=== PATIENT | male | born 1960 | race African-American/Black ===

== ENCOUNTER 2017-01-04 08:30 | Inpatient (IN) | payer OTHER ==
[~2017-01-04] VITALS: Ht 177.8 cm; Wt 88.9 kg
[2017-03-02] MEDS ORDERED: ATEN100T PO (12:05)
[2017-03-02] MEDS ORDERED: ALLO300T2 PO (12:05)
[2017-03-02] MEDS ORDERED: NIAC500T18 PO (12:05)
[2017-03-02] MEDS ORDERED: MOBI15TA PO (12:05)
[2017-03-02] MEDS ORDERED: GABA300C5 PO (12:05)
[2017-03-02] MEDS ORDERED: OMEP40CA2 PO (12:05)
[2017-03-02] MEDS ORDERED: LISI-515 PO (12:05)
[2017-03-02] MEDS ORDERED: ASPI1TAB69 PO (12:05)
[2017-03-02] MEDS ORDERED: HYDR25TA5 PO (12:05)
[2017-03-02] MEDS ORDERED: ALPR.25 PO (12:05)
[2017-03-03] MEDS ORDERED: ceFAZolin 2 GM PREMIX 50 ML IV SCH (10:45)
[2017-03-03] MEDS ORDERED: CHLORHEXIDINE GLUCONATE 4% SOLN 120 ML BTL TOPICAL SCH (10:45)
[2017-03-03] MEDS ORDERED: POVIDONE IODINE 7.5% SCRUB 118 ML BOTTLE TOPICAL SCH (10:45)
[2017-03-03] MEDS ORDERED: METOPROLOL TARTRATE 25 MG TAB PO PRN (11:00)
[2017-03-03] MEDS ORDERED: SODIUM CHLORID 0.9% 500 ML IV PRN (11:00)
[2017-03-03] MEDS ORDERED: DEXAMETHASONE SOD PHOS 20 MG/5 ML VIAL IV SCH (11:00)
[2017-03-03] MEDS ORDERED: ROPIVACAINE PERI-ARTICULAR INJECTION. P-ARTICULR SCH ×5 (11:00)
[2017-03-03] MEDS ORDERED: POVIDONE IODINE 5% (ANTISEPSIS KIT) 4 APPLICATIONS EACH NARE PRN (11:00)
[2017-03-03] MEDS ORDERED: TRANEXAMIC ACID INJ 885 MG in SODIUM CHLORIDE 0.9% INJ 100 ML IV SCH (11:00)
[2017-03-03] MEDS ORDERED: LACTATED RINGER'S 1000 ML IV PRN (11:00)
[2017-03-03] MEDS ORDERED: TRANEXAMIC PERI-ARTICULAR 3,000 MG/NS 100 ML P-ARTICULR SCH ×2 (11:00)
[2017-03-03] MEDS ORDERED: CHLORHEXIDINE GLUCONATE 2 % 1 PACK (2 CLOTHS) TOPICAL PRN (11:00)
[2017-03-03] MEDS ORDERED: INSULIN HUMAN REGULAR 1,000 UNITS/10 ML VIAL SQ PRN (11:00)
[2017-03-03] MEDS ORDERED: TRANEXAMIC ACID INJ 1,330 MG in SODIUM CHLORIDE 0.9% INJ 100 ML IV SCH (11:16)
[2017-03-03] MEDS ORDERED: VANCOMYCIN 1000 MG/NS 250 ML (for <70 kg) IV SCH ×2 (11:30)
[2017-03-03 11:57] VITALS: BP 140/90; PULSE 67; RESP 20; TEMP 97.9; O2SAT 99
[2017-03-03] MEDS ORDERED: PROPOFOL 200 MG/20 ML AMP IV ONE (12:00)
[2017-03-03] MEDS ORDERED: PHENYLEPH/NS 1000 MCG/10 ML SYR IV ONE (12:00)
[2017-03-03] MEDS ORDERED: ONDANSETRON HCL 4 MG/2 ML VIAL IV PUSH ONE (12:00)
[2017-03-03] MEDS ORDERED: LACTATED RINGER'S 1000 ML INJ 1,000 ML IV ONE (12:00)
[2017-03-03] MEDS ORDERED: GENTAMICIN SULFATE 80 MG/2 ML VIAL ONE (12:19)
[2017-03-03] MEDS ORDERED: HYDR-3288 PO (13:10)
[2017-03-03] MEDS ORDERED: ENOX40P SQ (13:10)
[2017-03-03] MEDS ORDERED: ASPI81CH37 CHEW (13:11)
[2017-03-03] MEDS ORDERED: BISACODYL 10 MG SUPP RECTAL PRN (13:15)
[2017-03-03] MEDS ORDERED: Post-op Orders (for Pharmacy) MISC XX ONE (13:15)
[2017-03-03] MEDS ORDERED: MORPHINE SULFATE 4 MG/ML INJ IV PUSH PRN (13:15)
[2017-03-03] MEDS ORDERED: ACETAMINOPHEN/HYDROcodone 325 MG/7.5 MG TAB PO PRN (13:15)
[2017-03-03] MEDS ORDERED: ALUMINUM/MAGNESIUM/SIMETH 30 ML CUP PO PRN (13:15)
[2017-03-03] MEDS ORDERED: ALPRAZolam 0.25 MG TAB PO PRN (13:15)
[2017-03-03] MEDS ORDERED: NALOXONE HCL 0.4 MG/ML AMP IV PRN (13:15)
[2017-03-03] MEDS ORDERED: ZOLPIDEM TARTRATE 5 MG TAB PO PRN (13:15)
[2017-03-03] MEDS ORDERED: diphenhydrAMINE HCL 50 MG/ML VIAL IV PRN (13:15)
[2017-03-03] MEDS ORDERED: ONDANSETRON HCL 4 MG/2 ML VIAL IVP PRN (13:15)
[2017-03-03] MEDS ORDERED: SODIUM CHLORIDE 0.9% FLUSH 10 ML FLUSH IV FLUSH PRN (13:15)
[2017-03-03] MEDS ORDERED: MIDAZOLAM HCL 2 MG/2 ML VIAL ONE ×2 (14:17→14:22)
[2017-03-03] MEDS ORDERED: FAMOTIDINE 20 MG/2 ML VIAL ONE (14:18)
[2017-03-03] MEDS ORDERED: fentaNYL CITRATE 250 MCG/5 ML AMP ONE (14:22)
[2017-03-03] MEDS ORDERED: MORPHINE SULFATE 4 MG/ML INJ ONE (16:52)
--- NOTE | 2017-03-03 17:20 | RADRPT ---
EXAM DATE/TIME: 03/03/2017 18:02 [place] COMPARISON: No previous studies available for comparison. INDICATIONS : Post op right knee replacement. MEDICAL HISTORY : None. SURGICAL HISTORY : None. ENCOUNTER: Initial ACUITY: 1 day PAIN SCORE: Non-responsive. LOCATION: Right knee. FINDINGS: Two-view examination of the right knee demonstrates a total knee arthroplasty in place. Prominent am ount of gas present within the suprapatellar bursa and scattered gas in the soft tissues. Alignment of the osseous structures is anatomic. CONCLUSION: Expected postsurgical findings status post total knee arthroplasty. Kuldeep Jaime MD on March 03, 2017 at 17:18 Board Certified Radiologist. This report was verified electronically.
[2017-03-03] MEDS: SODIUM CHLOR 0.9% 1000 ML INJ 1,000 ML IV SCH (17:30)
[2017-03-03] MEDS ORDERED: DEXTROSE 50% IN WATER 50 ML VIAL(D50) IV PUSH PRN (17:45)
[2017-03-03] MEDS ORDERED: GLUCAGON 1 MG/ML VIAL OTHER PRN (17:45)
--- NOTE | 2017-03-03 17:45 | PD.CONS ---
HPI Service [facility] Hospitalists Consult Requested By Orthopedic Surgeon, Dr. Good Reason for Consult Medical Management Primary Care Physician [facility] Diagnoses: History of Present Illness Patient is a 56 year old male with primary medical history of HTN, HLD, DM diet-controlled, history of pancreatitis secondary to EtOH, osteoarthritis who came into the hospital for right knee arthritis and underwent right total knee arthroplasty done by Dr. Good. Patient seen in the recovery room just waking up from surgery. Patient is confused, unaware of what had happened to him. Reoriented by nursing and discussed that he is status post knee surgery.Denies pain and discomfort. Denies SOB/ dyspnea. Denies chest pain, palpitations, headaches, dizziness. Denies fevers, chills, n/ v/d. Review of Systems Except as stated in HPI: all other systems reviewed are Neg Past Family Social History Allergies: Coded Allergies: No Known Allergies (Verified , 03/02/17) Past Medical History HTN HLD DM/diet-controlled Anxiety History of pancreatitis secondary to EtOH Gout Osteoarthritis Past Surgical History Ear surgery Eye surgery Reported Medications Reported Meds & Active Scripts Active Aspirin Low Dose (Aspirin) 81 Mg Chew 81 Mg CHEW BID Lovenox Inj (Enoxaparin Sodium) 40 Mg/0.4 Ml Syr 40 Mg SQ DAILY [place] (Hydrocodone-Acetaminophen) 7.5-325 mg Tab 1-2 Tab PO Q6H PRN Reported Xanax (Alprazolam) 0.25 Mg Tab 0.25 Mg PO Q4H PRN Omeprazole 40 Mg Cap 40 Mg PO DAILY Allopurinol 300 Mg Tab 300 Mg PO DAILY Gabapentin 300 Mg Cap 300 Mg PO TID Mobic (Meloxicam) 15 Mg Tab 15 Mg PO DAILY Niacin (Niacinamide) 500 Mg Tab 1 Tab PO DAILY Aspirin 81 Mg Tabdr 81 Mg PO DAILY Lisinopril 20 Mg Tab 20 Mg PO BID Atenolol 100 Mg Tab 100 Mg PO DAILY Hydrochlorothiazide 25 Mg Tab 25 Mg PO DAILY Active Ordered Medications Current Medications Medications (Trade) Dose Ordered Sig/Russell Route Start Time Stop Time Status Last Admin (Zyloprim) 300 mg DAILY PO 03/04/17 09:00 (Xanax) 0.25 mg Q4H PRN PO 03/03/17 13:15 (Tenormin) 100 mg DAILY PO 03/04/17 09:00 (Hydrodiuril) 25 mg DAILY PO 03/04/17 09:00 (Prinivil) 20 mg BID PO 03/03/17 21:00 (Slo-Niacin) 500 mg DAILY PO 03/04/17 09:00 Pantoprazole Sodium 40 mg 40 mg DAILY PO 03/04/17 09:00 (NS 1000 ml Inj) 1,000 ml @ 100 mls/hr Q10H IV 03/03/17 17:00 03/03/17 17:30 (NS Flush) 2 ml UNSCH PRN IV FLUSH 03/03/17 13:15 Sodium Chloride 2 ml 2 ml BID IV FLUSH 03/03/17 21:00 (Ancef Inj/NS Inj) 100 ml @ 200 mls/hr Q6H IV 03/03/17 18:00 03/04/17 06:29 (Lovenox Inj) 40 mg Q24H SQ 03/04/17 16:00 (Morphine Inj) 3 mg Q3H PRN IV PUSH 03/03/17 13:15 ([place]ison 7.5-325 Mg) 1 tab Q4H PRN PO 03/03/17 13:15 ([place] 7.5-325 Mg) 2 tab Q4H PRN PO 03/03/17 13:15 (Theragran M Tab) 1 tab BID PO 03/04/17 21:00 05/03/17 20:59 (Zofran Inj) 4 mg Q6H PRN IVP 03/03/17 13:15 (Colace) 100 mg BID PO 03/04/17 21:00 (Mag-Al Plus Susp Liq) 30 ml Q6H PRN PO 03/03/17 13:15 (Ambien) 5 mg HS PRN PO 03/03/17 13:15 (Dulcolax Supp) 10 mg DAILY PRN RECTAL 03/03/17 13:15 (Narcan Inj) 0.4 mg UNSCH PRN IV 03/03/17 13:15 (Benadryl Inj) 25 mg Q6H PRN IV 03/03/17 13:15 (Neurontin) 300 mg TID PO 03/03/17 20:00 Family History Mother has history of heart disease, at the age of 78 Social History Previous alcohol use, quit in 2007 Former smoker Denies illicit drug use Physical Exam Vital Signs Vital Signs Date Time Temp Pulse Resp B/P Pulse Ox O2 Delivery O2 Flow Rate FiO2 03/03/17 11:57 97.9 67 20 140/90 99 Physical Exam GENERAL: This is a well-nourished, well-developed patient, drowsy, in no apparent distress. SKIN: No rashes, ecchymoses or lesions. Warm and dry. HEAD: Atraumatic. Normocephalic. No temporal or scalp tenderness. EYES: Pupils equal round and reactive. No scleral icterus. No injection or drainage. ENT: Nose without bleeding. Throat without erythema. Uvula midline. Airway patent. Oral mucosa dry. NECK: Trachea midline. No JVD or lymphadenopathy. CARDIOVASCULAR: Regular rate and rhythm 2/6 systolic murmurs, gallops, or rubs. RESPIRATORY: Clear to auscultation. Breath sounds equal bilaterally. No wheezes , rales, or rhonchi. GASTROINTESTINAL: Abdomen soft, non-tender, nondistended. Hypoactive bowel sounds MUSCULOSKELETAL: Extremities without clubbing, cyanosis, or edema. Right lower extremity with immobilizer. NEUROLOGICAL: Drowsy. Oriented to self. Able to follow commands. Motor and sensory grossly within normal limits. Moves all extremities. Normal speech. Laboratory Laboratory Tests Test 03/03/17 11:20 Blood Type B POSITIVE Antibody Screen NEGATIVE Blood Bank Comment Imaging Last Impressions Knee X-Ray 03/03/17 1307 Signed Impressions: Service Date/Time: Friday, March 03, 2017 18:02 - CONCLUSION: Expected postsurgical findings status post total knee arthroplasty. Kuldeep Jaime MD Assessment and Plan Problem List: (1) Primary localized osteoarthrosis, lower leg ICD Code: M17.10 Status: Acute (2) HTN (hypertension) ICD Code: I10 Status: Chronic (3) DM type 2 (diabetes mellitus, type 2) ICD Code: E11.9 Status: Chronic (4) HLD (hyperlipidemia) ICD Code: E78.5 Status: Chronic (5) S/P knee replacement ICD Code: Z96.659 Status: Acute Assessment and Plan Patient is a 56 year old male with primary medical history of HTN, HLD, DM diet-controlled, history of pancreatitis secondary to EtOH, osteoarthritis who came into the hospital for right knee arthritis and underwent right total knee arthroplasty done by Dr. Good. Status post right total knee arthroplasty - Pain management - Followed by primary team orthopedics HTN - Continue home medications atenolol 100 mg daily, lisinopril 20 mg BID, hydrochlorothiazide 25 mg daily - Monitor BP trend DM 2 - Diet controlled. Diabetic diet - Insulin sliding scale, monitor blood glucose before meals and at bedtime - Monitor for hypoglycemia HLD - Continue with atorvastatin Gout - Continue with allopurinol DVT prop Lovenox Written by Sorin Lake, on behalf of Dr. Silva on 03/03/17 at 17:44. Seen in his bedroom in the presence of nurse, his and his Daughter, all questions answered plan of care discussed with patient, continue management along with Attending physician Code Status Full code Discussed Condition With Patient, nursing Sorin Alejandra Mar 03, 2017 17:45 Dami Anthony MD Mar 03, 2017 19:17
[2017-03-03] MEDS ORDERED: LABETALOL HCL 100 MG/20 ML VIAL ONE (17:55)
[2017-03-03] MEDS ORDERED: GABAPENTIN 300 MG CAP PO SCH ×2 (18:00)
[2017-03-03] MEDS ORDERED: DO NOT ADM ANY ANTICOAGULANT DRUGS PRN (18:45)
[2017-03-03 19:46] VITALS: BP 157/89; PULSE 69; RESP 16; TEMP 97.4; O2SAT 99
[2017-03-03] MEDS: GABAPENTIN 300 MG CAP PO SCH (19:56)
[2017-03-03] MEDS: LISINOPRIL 20 MG TAB PO SCH (19:56)
[2017-03-03] MEDS: ACETAMINOPHEN/HYDROcodone 325 MG/7.5 MG TAB PO PRN ×2 (19:57→23:57)
[2017-03-03] MEDS: INSULIN ASPART SUPPLEMENTAL SCALE SQ SCH (20:00)
[2017-03-03] MEDS: SODIUM CHLORIDE 0.9% FLUSH 10 ML FLUSH IV FLUSH SCH (20:00)
[2017-03-04] VITALS (8 sets, daily range): BP systolic 132–166; BP diastolic 83–97; PULSE 60–82; RESP 16–18; TEMP 95.6–96.7; O2SAT 96–99
[2017-03-04] MEDS: SODIUM CHLOR 0.9% 1000 ML INJ 1,000 ML IV SCH ×3 (03:00→23:00)
[2017-03-04] MEDS: ACETAMINOPHEN/HYDROcodone 325 MG/7.5 MG TAB PO PRN ×5 (05:05→22:29)
[2017-03-04 06:17] LABS: HEMATOCRIT 34.2 % (39.0-51.0); MEAN CELL VOLUME 71.7 FL (80.0-100.0); MEAN CORPUSCULAR HEMOGLOBIN 22.5 PG (27.0-34.0); MEAN CORPUSCULAR HGB CONC 31.4 % (32.0-36.0); PLATELET COUNT 171 TH/MM3 (150-450); RED BLOOD COUNT 4.77 MIL/MM3 (4.50-5.90); RED CELL DISTRIBUTION WIDTH 19.1 % (11.6-17.2); WHITE BLOOD COUNT 10.8 TH/MM3 (4.0-11.0)
[2017-03-04 06:29] LABS: REVIEW FLAG FINAL
[2017-03-04] MEDS: INSULIN ASPART SUPPLEMENTAL SCALE SQ SCH ×4 (06:44→22:36)
[2017-03-04 06:51] LABS: ANION GAP 7 MEQ/L (5-15); BICARBONATE 27.3 MEQ/L (21.0-32.0); BLOOD UREA NITROGEN 24 MG/DL (7-18); CHLORIDE 104 MEQ/L (98-107); FREE T4 0.75 NG/DL (0.76-1.46); GLOMERULAR FILTRATION RATE 57 ML/MIN (>89); HDL CHOLESTEROL 53.9 MG/DL (40.0-60.0); LDL CHOLESTEROL 84 MG/DL (0-99); MAGNESIUM 1.6 MG/DL (1.5-2.5); POTASSIUM 4.4 MEQ/L (3.5-5.1); SODIUM (NA) 138 MEQ/L (136-145)
[2017-03-04] MEDS: ALLOPURINOL 300 MG TAB PO SCH (09:00)
[2017-03-04] MEDS: LISINOPRIL 20 MG TAB PO SCH (09:00)
[2017-03-04] MEDS ORDERED: cloNIDine HCL 0.1 MG TAB PO PRN (09:15)
--- NOTE | 2017-03-04 09:15 | HHI.PR ---
Subjective Remarks This is a pleasant 56 year old male with Hypertension, Hyperlipidemia, DM II diet controlled, history of pancreatitis secondary to EtOH, has osteoarthritis who came into the hospital for right knee arthritis and underwent right total knee arthroplasty done by Dr. Good. Objective Vital Signs Date Time Temp Pulse Resp B/P Pulse Ox O2 Delivery O2 Flow Rate FiO2 03/04/17 04:29 96.4 76 17 166/89 98 03/04/17 00:29 96.0 82 18 158/87 98 03/03/17 19:46 97.4 69 16 157/89 99 03/03/17 19:03 Nasal Cannula 2.00 03/03/17 18:15 98.4 64 18 148/90 98 Nasal Cannula 2 03/03/17 18:00 72 18 161/96 98 Nasal Cannula 2 03/03/17 17:45 60 18 171/95 98 Nasal Cannula 2 03/03/17 17:30 64 18 176/102 99 Nasal Cannula 2 03/03/17 17:15 66 18 164/99 98 Nasal Cannula 2 03/03/17 17:00 69 18 155/96 98 Nasal Cannula 2 03/03/17 16:48 98.0 72 18 158/92 99 Nasal Cannula 2 03/03/17 11:57 97.9 67 20 140/90 99 I/O 03/03/17 03/03/17 03/03/17 03/04/17 03/04/17 03/04/17 07:00 15:00 23:00 07:00 15:00 23:00 Intake Total 1940 ml 1145 ml Output Total 875 ml Balance 1065 ml 1145 ml Intake Oral 240 ml IV Total 400 ml 1145 ml Other 1300 ml Output Urine Total 325 ml Estimated Blood Loss 150 ml Other 400 ml # Bowel Movements 0 Result Diagram: 03/04/17 0555 03/04/17 0555 Imaging Last Impressions Knee X-Ray 03/03/17 1307 Signed Impressions: Service Date/Time: Friday, March 03, 2017 18:02 - CONCLUSION: Expected postsurgical findings status post total knee arthroplasty. Kuldeep Jaime MD Procedures Right Total Knee arthroplasty Other Results Laboratory Tests Test 03/03/17 03/04/17 11:20 05:55 Blood Type B POSITIVE Antibody Screen NEGATIVE Blood Bank Comment White Blood Count 10.8 TH/MM3 Red Blood Count 4.77 MIL/MM3 Hemoglobin 10.7 GM/DL Hematocrit 34.2 % Mean Corpuscular Volume 71.7 FL Mean Corpuscular Hemoglobin 22.5 PG Mean Corpuscular Hemoglobin 31.4 % Concent Red Cell Distribution Width 19.1 % Platelet Count 171 TH/MM3 Mean Platelet Volume 9.3 FL Sodium Level 138 MEQ/L Potassium Level 4.4 MEQ/L Chloride Level 104 MEQ/L Carbon Dioxide Level 27.3 MEQ/L Anion Gap 7 MEQ/L Blood Urea Nitrogen 24 MG/DL Creatinine 1.53 MG/DL Estimat Glomerular Filtration 57 ML/MIN Rate Random Glucose 185 MG/DL Calcium Level 8.0 MG/DL Phosphorus Level 3.2 MG/DL Magnesium Level 1.6 MG/DL Triglycerides Level 45 MG/DL Cholesterol Level 147 MG/DL LDL Cholesterol 84 MG/DL HDL Cholesterol 53.9 MG/DL Cholesterol/HDL Ratio 2.72 RATIO Free Thyroxine 0.75 NG/DL Thyroid Stimulating Hormone 0.557 uIU/ML 3rd Gen Objective Remarks GENERAL: No Distress. SKIN: No rashes, ecchymoses or lesions. Warm and dry. HEAD: Atraumatic. Normocephalic. No temporal or scalp tenderness. EYES: Pupils equal round and reactive. No scleral icterus. ENT: Nose without bleeding. Throat without erythema. NECK: Trachea midline. No JVD or lymphadenopathy. CARDIOVASCULAR: Regular rate and rhythm 2/6 systolic murmurs, gallops, or rubs. RESPIRATORY: Clear to auscultation. Breath sounds equal bilaterally. No wheezes , rales, or rhonchi. GASTROINTESTINAL: Abdomen soft, non-tender, nondistended. Hypoactive bowel sounds MUSCULOSKELETAL: Extremities without clubbing, cyanosis, or edema. Right lower extremity with Orthotics in place. NEUROLOGICAL: Alert and oriented x 3. Medications and IVs Current Medications Medications (Trade) Dose Ordered Sig/Russell Route Start Time Stop Time Status Last Admin (Zyloprim) 300 mg DAILY PO 03/04/17 09:00 (Xanax) 0.25 mg Q4H PRN PO 03/03/17 13:15 (Tenormin) 100 mg DAILY PO 03/04/17 09:00 (Hydrodiuril) 25 mg DAILY PO 03/04/17 09:00 (Prinivil) 20 mg BID PO 03/03/17 21:00 03/03/17 19:56 (Slo-Niacin) 500 mg DAILY PO 03/04/17 09:00 Pantoprazole Sodium 40 mg 40 mg DAILY PO 03/04/17 09:00 (NS 1000 ml Inj) 1,000 ml @ 100 mls/hr Q10H IV 03/03/17 17:00 03/04/17 03:00 (NS Flush) 2 ml UNSCH PRN IV FLUSH 03/03/17 13:15 (NS Flush) 2 ml BID IV FLUSH 03/03/17 21:00 (Lovenox Inj) 40 mg Q24H SQ 03/04/17 16:00 (Morphine Inj) 3 mg Q3H PRN IV PUSH 03/03/17 13:15 ([place] 7.5-325 Mg) 1 tab Q4H PRN PO 03/03/17 13:15 (Castana 7.5-325 Mg) 2 tab Q4H PRN PO 03/03/17 13:15 03/04/17 05:05 (Theragran M Tab) 1 tab BID PO 03/04/17 21:00 05/03/17 20:59 (Zofran Inj) 4 mg Q6H PRN IVP 03/03/17 13:15 (Colace) 100 mg BID PO 03/04/17 21:00 (Mag-Al Plus Susp Liq) 30 ml Q6H PRN PO 03/03/17 13:15 (Ambien) 5 mg HS PRN PO 03/03/17 13:15 (Dulcolax Supp) 10 mg DAILY PRN RECTAL 03/03/17 13:15 (Narcan Inj) 0.4 mg UNSCH PRN IV 03/03/17 13:15 (Benadryl Inj) 25 mg Q6H PRN IV 03/03/17 13:15 (Neurontin) 300 mg TID PO 03/03/17 20:00 03/03/17 19:56 (D50w (Vial) Inj) 25 ml UNSCH PRN IV PUSH 03/03/17 17:45 (Glucagon Inj) 1 mg UNSCH PRN OTHER 03/03/17 17:45 Miscellaneous Information ALL NURSING DEPARTME... UNSCH PRN .XX 03/03/17 18:45 03/04/17 18:44 A/P Assessment and Plan (1) Primary localized osteoarthrosis, lower leg ICD Code: M17.10 Status: Acute (2) HTN (hypertension) ICD Code: I10 Status: Chronic (3) DM type 2 (diabetes mellitus, type 2) ICD Code: E11.9 Status: Chronic (4) HLD (hyperlipidemia) ICD Code: E78.5 Status: Chronic (5) S/P knee replacement ICD Code: Z96.659 Status: Acute Status post right total knee arthroplasty - Pain management - Followed by primary team orthopedics -PT and [employer] for discharge. HTN - Continue home medications atenolol 100 mg daily, lisinopril 20 mg BID, hydrochlorothiazide 25 mg daily - Mild uncontrol probable related to Pain, added Clonidine as needed for Systolic blood pressure in 160 mm Hg. DM 2 - Diet controlled. Diabetic diet - Insulin sliding scale, monitor blood glucose before meals and at bedtime - Monitor for hypoglycemia HLD - Continue with atorvastatin Gout - Continue with allopurinol Acute renal injury on chronic kidney disease continue IV fluids and follow renal function. may bee at baseline based on his past labs Creatinine 1.53. Anemia Iron deficiency. DVT prop Lovenox laboratory examined, hemoglobin Code Status Full code Discussed Condition With Patient, nursing EricHeavenlyjosePavelmarjorie ALCARAZ Mar 03, 2017 17:45 Dami Anthony MD Mar 03, 2017 19:17 Discharge Planning Okay to discharge from Medicine standpoint. Dami Anthony MD Mar 04, 2017 09:15
[2017-03-04] MEDS: NIACIN 500 MG EXTENDED RELEASE TAB PO SCH (10:08)
[2017-03-04] MEDS: PANTOPRAZOLE SOD 40 MG DELAYED RELEASE TAB PO SCH (10:08)
[2017-03-04] MEDS: GABAPENTIN 300 MG CAP PO SCH ×3 (10:08→17:52)
[2017-03-04] MEDS: ATENOLOL 100 MG TAB PO SCH (10:10)
[2017-03-04] MEDS: HYDROCHLOROTHIAZIDE 25 MG TAB PO SCH (10:11)
[2017-03-04] MEDS: SODIUM CHLORIDE 0.9% FLUSH 10 ML FLUSH IV FLUSH SCH ×2 (10:11→21:00)
--- NOTE | 2017-03-04 12:29 | PD.ORT.PN ---
Subjective Post Op Day #: 1 Subjective Remarks pain tolerable Objective Vitals Vital Signs Date Time Temp Pulse Resp B/P Pulse Ox O2 Delivery O2 Flow Rate FiO2 03/04/17 12:00 96.3 69 18 145/89 97 03/04/17 11:04 99 21 03/04/17 08:00 96.7 73 18 156/87 98 03/04/17 04:29 96.4 76 17 166/89 98 03/04/17 00:29 96.0 82 18 158/87 98 03/03/17 19:46 97.4 69 16 157/89 99 03/03/17 19:03 Nasal Cannula 2.00 03/03/17 18:15 98.4 64 18 148/90 98 Nasal Cannula 2 03/03/17 18:00 72 18 161/96 98 Nasal Cannula 2 03/03/17 17:45 60 18 171/95 98 Nasal Cannula 2 03/03/17 17:30 64 18 176/102 99 Nasal Cannula 2 03/03/17 17:15 66 18 164/99 98 Nasal Cannula 2 03/03/17 17:00 69 18 155/96 98 Nasal Cannula 2 03/03/17 16:48 98.0 72 18 158/92 99 Nasal Cannula 2 I/O 03/03/17 03/03/17 03/03/17 03/04/17 03/04/17 03/04/17 07:00 15:00 23:00 07:00 15:00 23:00 Intake Total 1940 ml 1145 ml 698 ml Output Total 875 ml Balance 1065 ml 1145 ml 698 ml Intake Oral 240 ml IV Total 400 ml 1145 ml 698 ml Other 1300 ml Output Urine Total 325 ml Estimated Blood Loss 150 ml Other 400 ml # Bowel Movements 0 Result Diagram: 03/04/17 0555 03/04/17 0555 Imaging Last 24 hours Impressions Knee X-Ray 03/03/17 1307 Signed Impressions: Service Date/Time: Friday, March 03, 2017 18:02 - CONCLUSION: Expected postsurgical findings status post total knee arthroplasty. Kuldeep Jaime MD Objective Remarks in chair, nad dressing c/d/i neg homans nvi Assessment & Plan Ortho Post Op Day #: 1 Problem List: Assessment and Plan s/p R TKA wbat daily dressing changes lovenox d/c planning home with hhc and pt - likely Wednesday rx in chart f/up dr. diaz 2 weeks Juan M Peoples Mar 04, 2017 12:29
--- NOTE | 2017-03-04 12:31 | HHI.DCPOC ---
Discharge Care Plan Diagnosis: (1) Primary localized osteoarthrosis, lower leg Your Health Problems Are: Difficulty with ADL Goals to Promote Your Health * To prevent worsening of your condition and complications * To maintain your health at the optimal level Directions to Meet Your Goals Take your medications as prescribed Follow your dietary instruction Follow activity as directed Keep your appointments as scheduled Take your immunizations and boosters as scheduled If your symptoms worsen call your PCP, if no PCP go to Urgent Care Center or Emergency Room Smoking is Dangerous to Your Health. Avoid second hand smoke Call the 24-hour hour crisis hotline for domestic abuse at Juan M Peoples Mar 04, 2017 12:31
--- NOTE | 2017-03-04 12:32 | HHI.FF ---
Face to Face Verification Diagnosis: (1) Primary localized osteoarthrosis, lower leg Physical Therapy Gait training, Safety evaluation, Transfer training, bed to chair Knee: Total knee, Protocol: Right Right LE Weight Bearing: WB as tolerated Nursing RN: 3 days/week x 2 weeks Nursing: Verna teaching, Dressing changes Dressing Changes: Daily dressing change I have seen patient Bear Hdz on 03/04/17. My clinical findings support the need for the requested home health care services because: Limited ability to care for self High risk of falls I certify that my clinical findings support that this patient is homebound because: Post-op weakness Unsteady gait/balance Juan M Peoples Mar 04, 2017 12:32
[2017-03-04] MEDS ORDERED: WALKER WHEELS/F1 MIS (12:33)
[2017-03-04] MEDS ORDERED: CPMMACHINE (12:33)
[2017-03-04] MEDS ORDERED: COMMODE 3-IN-11 MIS (12:33)
[2017-03-04] MEDS: ENOXAPARIN SODIUM 40 MG/0.4 ML SYRINGE SQ SCH (16:10)
[2017-03-04 16:12] LABS: HEMOGLOBIN A1a 1.2 %; HEMOGLOBIN Ao 82.1 %; HEMOGLOBIN LA1C 2.5 %; HEMOGLOBIN P3 4.4 %
[2017-03-04] MEDS: DOCUSATE SODIUM 100 MG CAP PO SCH (22:29)
[2017-03-04] MEDS: MULTIVITAMINS/MINERALS THERAPEUTIC TAB PO SCH (22:29)
[2017-03-05 00:10] VITALS: BP 131/86; PULSE 68; RESP 17; TEMP 97.5; O2SAT 99
[2017-03-05] MEDS: ACETAMINOPHEN/HYDROcodone 325 MG/7.5 MG TAB PO PRN ×4 (02:37→15:23)
[2017-03-05] MEDS: INSULIN ASPART SUPPLEMENTAL SCALE SQ SCH ×2 (07:00→11:00)
[2017-03-05 08:00] VITALS: BP 112/80; PULSE 72; RESP 18; TEMP 97.2; O2SAT 96
[2017-03-05 08:11] LABS: HEMATOCRIT 30.8 % (39.0-51.0); MEAN CELL VOLUME 71.2 FL (80.0-100.0); MEAN CORPUSCULAR HEMOGLOBIN 22.2 PG (27.0-34.0); MEAN CORPUSCULAR HGB CONC 31.2 % (32.0-36.0); PLATELET COUNT 157 TH/MM3 (150-450); RED BLOOD COUNT 4.33 MIL/MM3 (4.50-5.90); RED CELL DISTRIBUTION WIDTH 18.4 % (11.6-17.2); WHITE BLOOD COUNT 7.4 TH/MM3 (4.0-11.0)
[2017-03-05 08:14] LABS: REVIEW FLAG FINAL
[2017-03-05 08:31] LABS: BICARBONATE 26.8 MEQ/L (21.0-32.0); POTASSIUM 3.9 MEQ/L (3.5-5.1)
[2017-03-05] MEDS: SODIUM CHLOR 0.9% 1000 ML INJ 1,000 ML IV SCH ×2 (09:00→10:57)
[2017-03-05] MEDS: HYDROCHLOROTHIAZIDE 25 MG TAB PO SCH (09:00)
--- NOTE | 2017-03-05 09:38 | MP ---
cc: KIMI SEAY M.D. DATE OF SURGERY 03/03/2017 PREOPERATIVE DIAGNOSIS Right knee osteoarthritis POSTOPERATIVE DIAGNOSES Right knee osteoarthritis PROCEDURE Right total knee arthroplasty SURGEON Dr. Kimi Seay SLOOP CAPTAIN YAMILE Garay ANESTHESIA General with a femoral nerve block. ESTIMATED BLOOD LOSS 50 cc TOURNIQUET TIME 52 minutes at 250 mmHg COMPLICATIONS None IMPLANTS USED DePuy attune size six posterior stabilized femoral component, size seven rotating platform tibia baseplate, size 6 mm polyethylene tibial insert, size 38 patella. JUSTIFICATION The patient is a 56-year male patient who has severe end-stage osteoarthritis involving the right knee. He has severe disabling pain with standing, walking, ambulation, weight-bearing activities and even severe pain at rest. He has failed greater than three months of nonoperative conservative treatment to include medication therapy, injections, ambulatory assistive aids, home exercise program, activity modification. X-rays of the right knee revealed severe end-stage arthritis with joint space narrowing, subchondral sclerosis, subchondral cyst osteophyte formation and subluxation. The patient was counseled as to the risks, benefits and alternative to a total knee arthroplasty. The risks were discussed which include, but are limited to infection, damage to nerves, blood vessels, pain, stiffness, failure of the components, blood clots, pulmonary embolism and even . The patient's pain is severe, he understands the risks and did wish to proceed with surgery. PROCEDURE IN DETAIL A written consent obtained. The patient identified by name, taken to the operating room, placed in the supine position and general anesthesia was administered as well as 2 grams of IV Ancef and 1 gram of IV vancomycin. He did receive a right femoral nerve block. A well-padded tourniquet was placed on the right thigh. The right lower tree prepped and draped using Isopropyl alcohol, Hibiclens solution and Chloraprep solution. After a time-out was performed, an Esmarch bandage was used to exsanguinate the right lower extremity. The tourniquet inflated to 250 mmHg. A longitudinal incision made over the anterior aspect of the right knee. A medial parapatellar arthrotomy was performed. The patella was everted. The patellar resection guide was used to resect 9 mm of patella. A size 38 mm guide was placed, three drills were placed and the 38 mm trial fit well. Attention was turned to the femur where an intramedullary guide noemy was placed. The distal femoral guide was set to remove 10 mm of distal femur 5 degrees off the anatomic valgus axis alignment. An oscillating saw was used to perform a distal femoral cut. An oscillating saw was used to perform a distal femoral cut. Attention was turned to the tibia where an extramedullary tibial guide was used to resect 5 mm off the lowest portion of the medial tibial plateau. The tibia guide was pinned in place. A tibial cut was performed. A 5 mm spacer block showed full extension. Attention was turned back to the femur where the AP sizing blocks were measured at a size six. The anterior reference 3 degree external rotation guide was used to pin a size [address]. Anterior, posterior and chamfer cuts were performed. A size six PCL box was pinned in place and the PCL box cut with an oscillating saw. The medial and lateral meniscus remnants were removed, as well as bone and soft tissue debris from the posterior portion of the knee. A size seven tibia base was pinned in place. The tibia was drilled and punched. Trial components were evaluated and trial components pinned in place. With the 6-mm tibial insert, the leg could achieved full extension to 0 degrees, full flexion to 140. No evidence of tibial lift-off. Varus-valgus balance appeared appropriate and symmetric and the patella was noted to track centrally. The tourniquet was deflated Bovie cautery was used for hemostasis. The surgical wound was thoroughly irrigated with sterile saline pulse lavage antibiotic impregnated solution. The arthrotomy incision was closed with #1 Vicryl suture, subcutaneous layer 2-0 Vicryl suture, skin was closed with Dermabond. Sterile dressings were applied. The patient tolerated the procedure well. No intraoperative complications noted. Moshe Peoples, Physician Neon Sign Erector Certified was present during the entire procedure to include patient positioning and the procedure itself. The medical necessity of a physician senior underwriting assistant was indicated in this case due to the complexity of the procedure. He assisted with appropriate manipulation of the leg and also retraction of muscle, tendon, bone and neurovascular structures. He assisted with preparation of bone cuts and also implantation of the prosthetic replacement. MD LUKE Anderson/NICKY /4:29 PM /9:14 AM
--- NOTE | 2017-03-05 09:49 | HHI.PR ---
Subjective Remarks This is a pleasant 56 year old male with Hypertension, Hyperlipidemia, DM II diet controlled, history of pancreatitis secondary to EtOH, has osteoarthritis who came into the hospital for right knee arthritis and underwent right total knee arthroplasty done by Dr. Good. 03/05: Seen in his bedroom in the presence of his and discussed with nurse Miss Poe appreciated he has Constipation started voiding after Kurtz cath removed, given Lactulose for constipation. NO nausea, vomit or diarrhea. Objective Vital Signs Date Time Temp Pulse Resp B/P Pulse Ox O2 Delivery O2 Flow Rate FiO2 03/05/17 00:10 97.5 68 17 131/86 99 03/04/17 20:20 95.8 60 16 135/87 96 03/04/17 18:31 95.7 65 16 132/83 96 03/04/17 16:00 95.6 60 18 157/97 97 03/04/17 12:00 96.3 69 18 145/89 97 03/04/17 11:04 99 21 I/O 03/04/17 03/04/17 03/04/17 03/05/17 03/05/17 03/05/17 07:00 15:00 23:00 07:00 15:00 23:00 Intake Total 1145 ml 1898 ml 600 ml 600 ml Output Total 1750 ml Balance 1145 ml 1898 ml -1150 ml 600 ml Intake Oral 1200 ml 600 ml 600 ml IV Total 1145 ml 698 ml Output Urine Total 1750 ml Bladder Scan Volume Amount 184 ml # Voids 2 Result Diagram: 03/05/17 0724 03/05/17 0724 Imaging Last Impressions Knee X-Ray 03/03/17 1307 Signed Impressions: Service Date/Time: Friday, March 03, 2017 18:02 - CONCLUSION: Expected postsurgical findings status post total knee arthroplasty. Kuldeep Jaime MD Procedures Right Total Knee arthroplasty Other Results Laboratory Tests Test 03/03/17 03/04/17 03/05/17 11:20 05:55 07:24 Blood Type B POSITIVE Antibody Screen NEGATIVE Blood Bank Comment Hemoglobin A1c 7.4 % Phosphorus Level 3.2 MG/DL Magnesium Level 1.6 MG/DL Triglycerides Level 45 MG/DL Cholesterol Level 147 MG/DL LDL Cholesterol 84 MG/DL HDL Cholesterol 53.9 MG/DL Cholesterol/HDL Ratio 2.72 RATIO Free Thyroxine 0.75 NG/DL Thyroid Stimulating Hormone 0.557 uIU/ML 3rd Gen White Blood Count 7.4 TH/MM3 Red Blood Count 4.33 MIL/MM3 Hemoglobin 9.6 GM/DL Hematocrit 30.8 % Mean Corpuscular Volume 71.2 FL Mean Corpuscular Hemoglobin 22.2 PG Mean Corpuscular Hemoglobin 31.2 % Concent Red Cell Distribution Width 18.4 % Platelet Count 157 TH/MM3 Mean Platelet Volume 9.7 FL Sodium Level 139 MEQ/L Potassium Level 3.9 MEQ/L Chloride Level 106 MEQ/L Carbon Dioxide Level 26.8 MEQ/L Anion Gap 6 MEQ/L Blood Urea Nitrogen 18 MG/DL Creatinine 1.19 MG/DL Estimat Glomerular Filtration 76 ML/MIN Rate Random Glucose 163 MG/DL Calcium Level 8.1 MG/DL Objective Remarks GENERAL: No Distress. SKIN: No rashes, ecchymoses or lesions. Warm and dry. HEAD: Atraumatic. Normocephalic. No temporal or scalp tenderness. EYES: Pupils equal round and reactive. No scleral icterus. ENT: Nose without bleeding. Throat without erythema. NECK: Trachea midline. No JVD or lymphadenopathy. CARDIOVASCULAR: Regular rate and rhythm 2/6 systolic murmurs, gallops, or rubs. RESPIRATORY: Clear to auscultation. Breath sounds equal bilaterally. No wheezes , rales, or rhonchi. GASTROINTESTINAL: Abdomen soft, non-tender, nondistended. Hypoactive bowel sounds MUSCULOSKELETAL: Extremities without clubbing, cyanosis, or edema. Right lower extremity with Orthotics in place. NEUROLOGICAL: Alert and oriented x 3. Medications and IVs Current Medications Medications (Trade) Dose Ordered Sig/Russell Route Start Time Stop Time Status Last Admin (Zyloprim) 300 mg DAILY PO 03/04/17 09:00 (Xanax) 0.25 mg Q4H PRN PO 03/03/17 13:15 (Tenormin) 100 mg DAILY PO 03/04/17 09:00 03/04/17 10:10 (Hydrodiuril) 25 mg DAILY PO 03/04/17 09:00 03/04/17 10:11 (Prinivil) 20 mg BID PO 03/03/17 21:00 03/03/17 19:56 (Slo-Niacin) 500 mg DAILY PO 03/04/17 09:00 03/04/17 10:08 Pantoprazole Sodium 40 mg 40 mg DAILY PO 03/04/17 09:00 03/04/17 10:08 (NS 1000 ml Inj) 1,000 ml @ 100 mls/hr Q10H IV 03/03/17 17:00 03/04/17 11:55 (NS Flush) 2 ml UNSCH PRN IV FLUSH 03/03/17 13:15 (NS Flush) 2 ml BID IV FLUSH 03/03/17 21:00 03/04/17 10:11 (Lovenox Inj) 40 mg Q24H SQ 03/04/17 16:00 03/04/17 16:10 (Morphine Inj) 3 mg Q3H PRN IV PUSH 03/03/17 13:15 ([place] 7.5-325 Mg) 1 tab Q4H PRN PO 03/03/17 13:15 ([place] 7.5-325 Mg) 2 tab Q4H PRN PO 03/03/17 13:15 03/05/17 06:36 (Theragran M Tab) 1 tab BID PO 03/04/17 21:00 05/03/17 20:59 03/04/17 22:29 (Zofran Inj) 4 mg Q6H PRN IVP 03/03/17 13:15 (Colace) 100 mg BID PO 03/04/17 21:00 03/04/17 22:29 (Mag-Al Plus Susp Liq) 30 ml Q6H PRN PO 03/03/17 13:15 (Ambien) 5 mg HS PRN PO 03/03/17 13:15 (Dulcolax Supp) 10 mg DAILY PRN RECTAL 03/03/17 13:15 (Narcan Inj) 0.4 mg UNSCH PRN IV 03/03/17 13:15 (Benadryl Inj) 25 mg Q6H PRN IV 03/03/17 13:15 (Neurontin) 300 mg TID PO 03/03/17 20:00 03/04/17 17:52 (D50w (Vial) Inj) 25 ml UNSCH PRN IV PUSH 03/03/17 17:45 (Glucagon Inj) 1 mg UNSCH PRN OTHER 03/03/17 17:45 (Catapres) 0.1 mg Q6H PRN PO 03/04/17 09:15 03/04/17 15:59 A/P Assessment and Plan (1) Primary localized osteoarthrosis, lower leg ICD Code: M17.10 Status: Acute (2) HTN (hypertension) ICD Code: I10 Status: Chronic (3) DM type 2 (diabetes mellitus, type 2) ICD Code: E11.9 Status: Chronic (4) HLD (hyperlipidemia) ICD Code: E78.5 Status: Chronic (5) S/P knee replacement ICD Code: Z96.659 Status: Acute Status post right total knee arthroplasty - Pain management - Followed by primary team orthopedics -PT and [employer] for discharge. HTN - Controlled DM 2 - Diet controlled. Diabetic diet - Insulin sliding scale, monitor blood glucose before meals and at bedtime - Continue home medicines on discharge. HLD - Continue with atorvastatin Gout - Continue with allopurinol Acute renal injury on chronic kidney disease Improved Anemia Iron deficiency. Constipation on Lactulose DVT prop Lovenox Code Status Full code Discussed Condition With Patient, Nurse Miss Poe and his Sorin Alejandra KIERAN Mar 03, 2017 17:45 Dami Anthony MD Mar 03, 2017 19:17 Discharge Planning Okay to discharge from Medicine standpoint. Dami Anthony MD Mar 05, 2017 09:49
[2017-03-05] MEDS ORDERED: LACTULOSE SYRUP 20 GM/30 ML CUP PO ONE (10:00)
[2017-03-05] MEDS: NIACIN 500 MG EXTENDED RELEASE TAB PO SCH (10:23)
[2017-03-05] MEDS: ATENOLOL 100 MG TAB PO SCH (10:23)
[2017-03-05] MEDS: MULTIVITAMINS/MINERALS THERAPEUTIC TAB PO SCH (10:23)
[2017-03-05] MEDS: DOCUSATE SODIUM 100 MG CAP PO SCH (10:23)
[2017-03-05] MEDS: ALLOPURINOL 300 MG TAB PO SCH (10:24)
[2017-03-05] MEDS: LISINOPRIL 20 MG TAB PO SCH (10:24)
[2017-03-05] MEDS: PANTOPRAZOLE SOD 40 MG DELAYED RELEASE TAB PO SCH (10:24)
[2017-03-05] MEDS: GABAPENTIN 300 MG CAP PO SCH ×2 (10:25→14:00)
[2017-03-05] MEDS: SODIUM CHLORIDE 0.9% FLUSH 10 ML FLUSH IV FLUSH SCH (10:25)
--- NOTE | 2017-03-05 11:49 | PD.ORT.PN ---
Subjective Post Op Day #: 2 Subjective Remarks pain tolerable. denies cp and sob. Objective Vitals Vital Signs Date Time Temp Pulse Resp B/P Pulse Ox O2 Delivery O2 Flow Rate FiO2 03/05/17 08:00 97.2 72 18 112/80 96 03/05/17 00:10 97.5 68 17 131/86 99 03/04/17 20:20 95.8 60 16 135/87 96 03/04/17 18:31 95.7 65 16 132/83 96 03/04/17 16:00 95.6 60 18 157/97 97 03/04/17 12:00 96.3 69 18 145/89 97 I/O 03/04/17 03/04/17 03/04/17 03/05/17 03/05/17 03/05/17 07:00 15:00 23:00 07:00 15:00 23:00 Intake Total 1145 ml 1898 ml 600 ml 600 ml Output Total 1750 ml Balance 1145 ml 1898 ml -1150 ml 600 ml Intake Oral 1200 ml 600 ml 600 ml IV Total 1145 ml 698 ml Output Urine Total 1750 ml Bladder Scan Volume Amount 184 ml # Voids 2 Result Diagram: 03/05/17 0724 03/05/17 0724 Imaging Last 24 hours Impressions Knee X-Ray 03/03/17 1307 Signed Impressions: Service Date/Time: Friday, March 03, 2017 18:02 - CONCLUSION: Expected postsurgical findings status post total knee arthroplasty. Kuldeep Jaime MD Objective Remarks in chair, nad incision no erythema, no drainage neg homans nvi Assessment & Plan Ortho Post Op Day #: 2 Problem List: Assessment and Plan s/p R TKA wbat daily dressing changes lovenox d/c planning home with [facility] and pt - cleared today after having a BM rx in chart f/up dr. diaz 2 weeks Juan M Peoples Mar 05, 2017 11:49
[2017-03-05 12:00] VITALS: BP 113/74; PULSE 83; RESP 17; TEMP 97.4; O2SAT 94
[2017-03-05] MEDS: ENOXAPARIN SODIUM 40 MG/0.4 ML SYRINGE SQ SCH (15:23)
--- NOTE | 2017-03-10 10:43 | MD ---
cc: KIMI GOOD ADMISSION DATE: 03/03/2017 DISCHARGE DATE: 03/05/2017 ADMISSION DIAGNOSIS Severe degenerative osteoarthritis right knee DISCHARGE DIAGNOSIS Severe degenerative osteoarthritis right knee HISTORY OF PRESENT ILLNESS Mr. Hdz is a 56-year-old male who presented to the [facility] for evaluation by Dr. Kimi Good regarding his severe and progressive right knee pain. The patient states the pain has been bothering him for several years and he has been treated at the [facility] for his right knee pain. He states currently he has a severe constant aching sensation in the right knee which is aggravated by weightbearing activities. He has no alleviating factors at this point in time, although in the past, he has tried medications, bracing, physical therapy, home exercise program, and corticosteroid injections without relief of symptoms. He does have x-ray evidence of severe degenerative osteoarthritis of the right knee. While in the office, the patient was counseled on the diagnosis and treatment options. The risks, benefits and indications of all were discussed in great detail. The patient did elect to proceed with surgical intervention to include a right total knee arthroplasty. Date of surgery 03/03/2017, right total knee arthroplasty. Postop after surgery, the patient admitted to [facility] where he received appropriate medical management, pain control, DVT prophylaxis, as well as physical therapy. Discharge, once being discharged from the hospital, the patient is cleared to go home where he will receive home health care and home physical therapy. He is in stable condition. He can weight-bear as tolerated. The patient is to receive daily dressing changes and has been instructed on appropriate wound care management. Patient has been provided prescriptions for pain control, as well as DVT prophylaxis medication. He has also been provided a follow-up appointment to see Dr. Kimi Good in the office in approximately two weeks from his date of surgery. The patient and the patient's have asked appropriate questions which have all been answered. The patient is cleared for discharge. Dictated by YAMILE Bustillo MD LUKE Anderson/NICKY /11:54 AM /10:38 AM
== END 2017-03-05 15:59 | disposition home health service (06) | DRG 469 ==
LOC: HSDI 03-03 09:56 → N06A 03-03 18:35
PROVIDERS: ADMIT Orthopaedic Surgery Sports Medicine; ATTEND Orthopaedic Surgery Sports Medicine
PROC: 3E0T3BZ Introduction of Anesthetic Agent into Peripheral Nerves and Plexi, Percutaneous Approach (ICD-10-PCS; 2017-03-03)
PROC: 0SRC0J9 Replacement of Right Knee Joint with Synthetic Substitute, Cemented, Open Approach (ICD-10-PCS; principal; 2017-03-03 14:23)
DX: M17.11 Unilateral primary osteoarthritis, right knee (principal); N18.6 End stage renal disease; N17.9 Acute kidney failure, unspecified; I12.0 Hypertensive chronic kidney disease with stage 5 chronic kidney disease or end stage renal disease; E78.5 Hyperlipidemia, unspecified; E11.9 Type 2 diabetes mellitus without complications; D50.9 Iron deficiency anemia, unspecified; M10.9 Gout, unspecified; K21.9 Gastro-esophageal reflux disease without esophagitis; Z79.82 Long term (current) use of aspirin; Z87.891 Personal history of nicotine dependence; K59.00 Constipation, unspecified
CPT/HCPCS: 73560; 80048; 80061; 82948; 83036; 83735; 84100; 84439; 84443; 85027; 86850; 86900; 86901; 94150; C1776; J0171; J0690; J0735; J1100; J1580; J1650; J1885; J2250; J2270; J2370; J2405; J2795; J3010; J3370; J7030; J7050; J7120; L1830